=== PATIENT | male | born 1980 | race Two or more races ===

== ENCOUNTER → 2020-11-02 | Day surgery (SDC) | payer OTHER ==
[2020-10-31 10:15] VITALS: BMI 31.1
[~2020-11-02] MED LIST: ALBUTEROL NEB (CONC) 2.5 MG/0.5 ML INHALATION ONE; KETAMINE 10 MG/ML 20 ML VIAL ONE; LACTATED RINGERS 1,000 ML IV SCH; LIDOCAINE 1% INJ 10MG/ML (20 ML MDV) ONE; LIDOCAINE 2% (PF) 20 MG/ML 5 ML VIAL INHALATION ONE; LIDOCAINE 2% INJ 20 MG/ML INTRATRACH ONE; LIDOCAINE VISCOUS 2% 15 ML CUP MUCOUS MEM ONE; LIDOCAINE VISCOUS 300 MG/15 ML CUP MUCOUS MEM ONE; MIDAZOLAM 2 MG/2 ML VIAL ONE; PROPOFOL 10 MG/ML 20 ML VIAL IV ONE; fentaNYL (PF) 50 MCG/ML 2 ML AMP ONE
[2020-11-02 13:37] VITALS: TEMP 96.8
[2020-11-02 15:19] VITALS: RESP 17
--- NOTE | 2020-11-02 15:26 | P.PCN ---
Date of Procedure: 11/02/20 Preoperative Diagnosis: hemoptysis Postoperative Diagnosis: 1 Abnormal reina, irregular/inflammed/erythmatous with possible areas of calcification 2 Abnormal right main stem bronchus (medial wall) with irregular/inflammed/erythmatous with possible areas of calcification Procedure(s) Performed: Flexible bronchoscopy and airway inspection Endobronchial biopsies of main reina Bronchioloalveolar lavage of the superior segment of the lingula Transbronchial needle aspirate of subcarinal lymph node, station 7 Anesthesia: MAC Surgeon: Ange Hammonds Technology Advisor #1: Mely Rodriguez Estimated Blood Loss (ml): 10 Pathology: other Disposition: same day Operative Findings: This procedure was done in the endoscopy suite. This was done under conscious sedation. After achieving adequate sedation, the flexible bronchoscope was introduced through the right nostril was advanced with Doppler airway. Examination of the posterior oropharynx, larynx, epiglottis, vocal cords, arytenoids and all of the upper airway structures were within normal limits. A total of 2 mL of 1% lidocaine was applied to the vocal cords and following that the bronchoscope was advanced with Doppler trachea. The upper and the middle and distal trachea was within normal limits. There was no evidence of any bleeding or blood clots or any mucosal abnormalities involving the trachea. The reina was normal. The main reina was irregular, swollen, the mucosa was inflamed and there was some areas of superficial irregularity and possibly some areas of calcification as white spots were emerging within the inflamed area. Similarly, the medial wall of the right mainstem bronchus was involved with the same abnormalities. Airway inspection was completed. The visualized airways included bilateral mainstem bronchi, right upper lobe bronchus, bronchus intermedius, right middle lobe bronchus and right lower lobe bronchus along with this various 10 segments and examination of the left that included the left mainstem bronchus left upper lobe bronchus left lower lobe bronchus along with various 8 segments. No other abnormalities were identified. The bronchoscope was then was wedged into severe segment of the lingula and the bronchioloalveolar lavage was done. A total of 100 the fluid was infused and 30 mL was aspirated back. Bronchoscope was then brought up to the main trachea where under visualization, the bronchial biopsies of the mucosal abnormalities at the level of the primary reina was done. A total of 3 biopsies were obtained. This created some endobronchial bleeding at the level of the main reina and the mucosa was bleeding superficially. Amount of bleeding was minimal. Following that, utilizing a 21-gauge Mg needle, 2 passes of the subcarinal lymph node was attempted. This was difficult due to some blood the pop takes and visual guajardo. They obtain samples were sent for pathologic evaluation. At the completion of the procedure, therapeutic it was suctioning with him. Any residual bloody secretions were suctioned out. Bronchus was removed and the patient was transferred recovery in stable condition The patient will be discharged home. The samples will be sent for microbial cultures and analysis and pathologic evaluation. At the same time we'll obtain fungal serology and Ryan level and sedimentation rate. CAT scan of the chest was reviewed. Is a high suspicion that this may end up being a granulomatous lymph node which is possibly invading the main reina and the medial wall of the right mainstem bronchus. It final diagnoses to be established. The patient may benefit from argon plasma coagulation therapy to control the bleed at a later stage. This will be discussed with the patient. Finally condition will be done once results are not available.
[2020-11-02 15:47] VITALS: BP 116/54; PULSE 64
== END ==
LOC: ORWHC2ENDO 13:08
PROVIDERS: ATTEND Internal Medicine Critical Care Medicine
DX: B48.8 Other specified mycoses (principal); I10 Essential (primary) hypertension; R04.2 Hemoptysis; Z82.49 Family history of ischemic heart disease and other diseases of the circulatory system; Z87.891 Personal history of nicotine dependence
CPT/HCPCS: 87798 ×3; 87496; 87498; 87529; 88108; 88305; 88173; 85652; 82164; 88312; 87252; 87502; 87634; 87070; 87205; 87116; 87102; 87206; 31629; 31625; 31624; J2001 ×2; J2250; J3010; J2704; 86606; 86612; 86635; 86698; 87385

== ENCOUNTER → 2022-09-16 | Outpatient (CLI) | payer OTHER ==
--- NOTE | 2022-09-16 15:40 | CT ---
EXAMINATION TYPE: CT chest w con DATE OF EXAM: 09/16/2022 COMPARISON: 09/16/2022, CT scan 09/28/2020 HISTORY: previous abnormal exam. pt states hemoptysis CT DLP: 430.2 mGycm Automated exposure control for dose reduction was used. TECHNIQUE: CT scan of the chest is performed with IV Contrast, patient injected with 100ML mL of Isovue 300. TX P Images are created on CT scanner and reviewed. 3D reconstructed images are created on an [employer] workstation and reviewed. FINDINGS: LUNGS: There is a left upper lobe 1.4 cm nodule identified. There is no pleural effusion or pneumot horax seen. The tracheobronchial tree is patent. MEDIASTINUM: There is large soft tissue density in the middle mediastinum extending posteriorly with internal calcification measuring 3.2 cm. There is right hilar pathologic adenopathy measuring 1.7 cm. There is a nodule in the left upper lobe measuring 1.4 cm. OTHER: No additional significant abnormality is seen. IMPRESSION: 1. There is a 1.4 cm left upper lobe pulmonary nodule with the mediastinal and hilar lymphadenopathy. Recommend PET/CT scan. Differential diagnosis would include granulomatous disease, sarcoidosis, nicholas galdino lymphoma. Less common etiologies would be metastases.
== END | disposition home or self-care (01) ==
LOC: RADCTMAIN 14:44
PROVIDERS: ATTEND Internal Medicine
DX: R91.1 Solitary pulmonary nodule (principal); R59.0 Localized enlarged lymph nodes; R04.2 Hemoptysis
CPT/HCPCS: 71260; Q9967

== ENCOUNTER → 2022-09-16 | Outpatient (CLI) | payer OTHER ==
[2022-09-17 02:28] LABS: Basophils # (A) 0.06 X 10*3/uL (0.00-0.10); Basophils % (A) 0.8 %; Eosinophils # (A) 0.18 X 10*3/uL (0.04-0.35); Eosinophils % (A) 2.3 %; HCT 46.2 % (39.6-50.0); HGB 15.9 g/dL (13.0-17.0); Immature Grans, Automated 0.4 %; Lymphocytes # (A) 2.86 X 10*3/uL (0.90-5.00); Lymphocytes % (A) 36.4 %; MCH 30.3 pg (27.0-32.0); MCHC 34.4 g/dL (32.0-37.0); MCV 88.2 fL (80.0-97.0); Mean Platelet Volume 11.1 fL (9.5-12.2); Monocytes # (A) 0.59 X 10*3/uL (0.20-1.00); Monocytes % (A) 7.5 %; NRBC Per 100 WBC 0 /100 WBCS (0.0-0.0); Neutrophils # (A) 4.13 X 10*3/uL (1.80-7.70); Neutrophils % (A) 52.6 %; Platelet Count 283 X 10*3/uL (140-440); RBC 5.24 X 10*6/uL (4.40-5.60); RDW 12.6 % (11.5-14.5); WBC 7.85 X 10*3/uL (4.50-10.00)
[2022-09-17 02:33] LABS: ALT 47 U/L (10-49); AST 33 U/L (14-35); African American GFR (CKD) 126.4 (60.0-200.0); Albumin 4.3 g/dL (3.8-4.9); Albumin/Globulin Ratio 1.51 (1.60-3.17); Alkaline Phosphatase 89 U/L (41-126); BUN/Creat Ratio 17.31 Ratio (12.00-20.00); Blood Urea Nitrogen 14.7 mg/dL (9.0-27.0); C Reactive Protein <0.30 mg/dL (0.00-0.80); Calcium 9.6 mg/dL (8.7-10.3); Carbon Dioxide 25.1 mmol/L (20.0-27.5); Chloride 104 mmol/L (96-109); Globulin 2.8 g/dL (1.6-3.3); Glucose 85 mg/dL (70-110); Potassium 4.4 mmol/L (3.5-5.5); Sodium 139 mmol/L (135-145); Total Protein 7.1 g/dL (6.2-8.2)
[2022-09-17 05:45] LABS: Erythrocyte Sedimentation Rate 5 mm/Hr (0-15)
== END | disposition home or self-care (01) ==
LOC: LABWHC1 15:07
PROVIDERS: ATTEND Internal Medicine
DX: R04.2 Hemoptysis (principal); R91.1 Solitary pulmonary nodule
CPT/HCPCS: 36415; 80053; 82164; 85025; 85652; 86140; 86606; 86612; 86635; 86698; 87385

== ENCOUNTER 2022-10-01 11:31 | Day surgery (SDC) | payer OTHER ==
[~2022-10-01 11:31] MED LIST changes: -ALBUTEROL NEB (CONC) 2.5 MG/0.5 ML INHALATION ONE; -KETAMINE 10 MG/ML 20 ML VIAL ONE; +LIDOCAINE 1% (10MG/ML) FOR IV START INTRADERMA PRN; -LIDOCAINE 1% INJ 10MG/ML (20 ML MDV) ONE; -LIDOCAINE 2% (PF) 20 MG/ML 5 ML VIAL INHALATION ONE; +LIDOCAINE 2% GLYDO JELLY 11 ML APPL MUCOUS MEM ONE; -LIDOCAINE 2% INJ 20 MG/ML INTRATRACH ONE; -LIDOCAINE VISCOUS 2% 15 ML CUP MUCOUS MEM ONE; -LIDOCAINE VISCOUS 300 MG/15 ML CUP MUCOUS MEM ONE; -MIDAZOLAM 2 MG/2 ML VIAL ONE; -PROPOFOL 10 MG/ML 20 ML VIAL IV ONE; -fentaNYL (PF) 50 MCG/ML 2 ML AMP ONE
[2022-10-01] MEDS ORDERED: LACTATED RINGERS 1,000 ML IV ONE (12:24)
[2022-10-01] MEDS ORDERED: SUCCINYLCHOLINE CHLORIDE 200 MG/10 ML VIAL IV ONE (12:59)
[2022-10-01] MEDS ORDERED: MIDAZOLAM 2 MG/2 ML VIAL ONE (12:59)
[2022-10-01] MEDS ORDERED: PROPOFOL 10 MG/ML 20 ML VIAL IV ONE (12:59)
[2022-10-01] MEDS ORDERED: GLYCOPYRROLATE 0.2 MG/ML 2 ML VIAL ONE (12:59)
[2022-10-01] MEDS ORDERED: LIDOCAINE 2% INJ 20 MG/ML (2 ML VIAL) ONE (12:59)
[2022-10-01] MEDS ORDERED: ROCURONIUM 10 MG/ML (5 ML VIAL) IV ONE (12:59)
[2022-10-01] MEDS ORDERED: NEOSTIGMINE 1 MG/ML 10 ML VIAL ONE (12:59)
[2022-10-01] MEDS ORDERED: fentaNYL (PF) 50 MCG/ML 2 ML AMP ONE (12:59)
--- NOTE | 2022-10-01 13:12 | CT ---
EXAMINATION TYPE: CT Chest wo con Veran Protocol, CT chest wo con DATE OF EXAM: 10/01/2022 COMPARISON: Chest radiograph 09/17/2022, CT chest 09/16/2022. HISTORY: Bronchial navigation. Veran chest (accession [id number]), Pulmonary nodules/mass (accession [id number]) CT DLP: 722 (accession [id number]), 543.20 (accession [id number]) mGycm Automated exposure control for dose reduction was used. FINDINGS: LUNGS/ PLEURA: No pleural effusion, pneumothorax, focal consolidation. Stable 1.4 x 0.5 cm nodule wi thin the left upper lobe with 2 adjacent satellite nodules measuring up to 3 mm (series 6, image 34 a nd 33). Additional stable 7 mm nodule along the left major fissure favored to represent a intrafissur al lymph node (series 6, image 36). No new suspicious pulmonary nodules or masses within the lung. AIRWAY: Patent and unremarkable.. HEART: Size within normal limits. No pericardial effusion. MEDIASTINUM: Limited examination due to lack of intravenous contrast per stable enlarged 3.0 cm short axis subcarinal lymph node with central calcification. Additional left suprahilar enlarged 1.1 cm sh ort axis lymph node with central calcification redemonstrated. VASCULATURE: No aortic aneurysm. MUSCULOSKELETAL: No acute osseous abnormalities. No aggressive osseous lesion. SOFT TISSUES/LYMPH NODES: Unremarkable. LOWER NECK: No significant findings. UPPER ABDOMEN: No significant findings. IMPRESSION: REDEMONSTRATION OF A 1.4 SIMILAR LEFT UPPER LOBE PULMONARY NODULE WITH 2 ADJACENT SMALLER SATELLITE N ODULES. ADDITIONALLY THERE IS REDEMONSTRATION OF MEDIASTINAL AND LEFT HILAR LYMPHADENOPATHY WITH CENT RAL CALCIFICATION. ETIOLOGIES INCLUDE GRANULOMATOUS DISEASE, TREATED LYMPHOMA, SARCOIDOSIS, OR PRIMAR Y LUNG MALIGNANCY WITH METASTASIS.
[2022-10-01 14:24] VITALS: TEMP 97.5
--- NOTE | 2022-10-01 15:07 | XR ---
EXAMINATION TYPE: XR chest 1V portable DATE OF EXAM: 10/01/2022 3:01 PM COMPARISON: Chest radiographs from TECHNIQUE: XR chest 1V portable Portable AP radiograph of the chest. CLINICAL INDICATION:Male, 41 years old with history of bronchoscopy biopsies; FINDINGS: Lungs/Pleura: There is no evidence of pleural effusion, or pneumothorax. Patchy nodular densities wit hin the left midlung corresponding to biopsy pulmonary nodule today. Pulmonary vascularity: Unremarkable. Heart/mediastinum: Cardiomediastinal silhouette is unremarkable. Musculoskeletal: No acute osseous pathology. IMPRESSION: Patchy nodular densities within the left midlung corresponding to pulmonary nodule biopsy today with likely some surrounding trace hemorrhage. No pneumothorax.
[2022-10-01 15:44] VITALS: BP 104/69; PULSE 60; RESP 14
--- NOTE | 2022-10-01 21:46 | OP ---
OPERATIVE REPORT DATE OF SERVICE : PROCEDURES PERFORMED: Bronchoscopy, flexible airway inspection, endobronchial biopsies of main reina, bronchoalveolar lavage of the superior segment of the lingula, transbronchial needle aspiration of subcarinal nodes, station 7, washings of the main reina, and brushings of the main reina biopsy. PREOPERATIVE DIAGNOSES: Hemoptysis and history of old granulomatous disease, secondary to coccidioidomycosis and aspergillosis. POSTOPERATIVE DIAGNOSES: Hemoptysis and history of old granulomatous disease, secondary to coccidioidomycosis and aspergillosis; however, the patient was found to have abnormal reina with inflamed erythematous areas associated with calcification in the main reina area, especially the anterior portion and the wall of the right mainstem bronchus medially. Abnormal right mainstem bronchus, especially the medial wall, with irregular inflamed erythematous areas with areas of calcification. ANESTHESIA USED: General anesthetic. DESCRIPTION OF PROCEDURE: The patient was set up initially for navigational bronchoscopy and transbronchial needle aspiration of subcarinal nodes; however, the navigational bronchoscopy was not performed mostly because of equipment issues related to the senses. Hence, the patient underwent the bronchoscopy as noted above. The patient was brought into the bronchoscopy suite, he was placed in a supine position. Anesthesia performed general anesthesia and intubated the patient. The patient was closely monitored including continuous pulse oximetry monitoring, O2 saturation monitoring, blood pressure was intermittently monitored, and cardiac rhythm was continuously monitored. The bronchoscope was advanced through the adapter of the endotracheal tube, and as we reached the distal end of the trachea and the reina, you could see there was evidence of oozing of blood in the main reina area especially anteriorly and on the medial wall of the right mainstem bronchus. There was also evidence of calcification noted protruding from the mucosa of the reina. Examination of the right upper lobe, right middle lobe, right lower lobe was performed, left upper lobe, lingula, and left lower lobe. There was no evidence of any endobronchial tumors or hemoptysis. The main site of the hemoptysis was basically coming from the carinal area. We were initially scheduled or set up to have a navigational bronchoscopy and biopsy of the nodule in the superior segment of the lingula; however, because of equipment difficulties, this was not performed. The reina was identified, and multiple biopsies were done from the mucosal area of the reina and the areas of calcification. Then, after endobronchial biopsies, multiple transbronchial needle aspirations were done of station 7/subcarinal lymph nodes using a 19-gauge Mg needle. These were sent for different diagnostic studies. Then, washings of the lingula and lavage of the superior lingula was done. Washings of the reina were also performed, and brushing from the reina was also done. The procedure was well tolerated, and there was minimal blood loss less than 10 mL all in all. No evidence of complications. was updated on his condition. The patient will follow up with me in 1 week for followup on the pathology and cytology as well as cultures from these areas identified above. MMODL / IJN: [id number] /
== END 2022-10-01 15:55 | disposition home or self-care (01) ==
LOC: ORWHC2ENDO 11:31
PROVIDERS: ATTEND Internal Medicine
DX: J98.4 Other disorders of lung (principal); B38.9 Coccidioidomycosis, unspecified; B44.9 Aspergillosis, unspecified
CPT/HCPCS: 87798 ×3; 87496; 87498; 87529; 88104; 88305; 87252; 87502; 87634; 87070; 87205; 87116; 87102; 87206; 71045; 71250; 31629; 31623; 31624; 31627; J2250; J0330; J2710; J3010; J2704; J2001; 31625; 87305; 87449

== ENCOUNTER → 2023-06-29 | Outpatient (CLI) | payer OTHER ==
--- NOTE | 2023-06-29 19:32 | CT ---
EXAMINATION TYPE: CT chest w con DATE OF EXAM: 06/29/2023 COMPARISON: 09/16/2022 HISTORY: Hemoptysis CT DLP: 446.2 mGycm Automated exposure control for dose reduction was used. TECHNIQUE: CT scan of the chest is performed with IV Contrast, patient injected with 100 mL of Isovue 300. MIP Images are created on CT scanner and reviewed. 3D reconstructed images are created on an independent workstation and reviewed. FINDINGS: 1.4 cm left upper lobe pulmonary nodule with 2 smaller satellite nodules are again seen and are uncha nged. No new lung mass or nodule is seen. There is no airspace/consolidative density or abnormal interstitial density. There is no pleural effusion, pleural thickening or pneumothorax. The great vessels chest are normal. There is a 3 cm short axis subcarinal lymph node with central calcification unchanged compared to pre vious. The left hilar lymph adenopathy seen on the prior study has improved. 2 small subcentimeter le ft hilar lymph nodes are seen. There is a 2 cm right hilar lymph node which has increased in size in the interval. IMPRESSION: 1. No change in the left upper lobe pulmonary nodules as described above. 2. No change in the subcarinal lymph node with calcification. 3. Interval development of a 2 cm right hilar enlarged lymph node. 4. Improvement in the left hilar lymphadenopathy as described above.
== END | disposition home or self-care (01) ==
LOC: RADCTMAIN 18:14
PROVIDERS: ATTEND Internal Medicine
DX: A42.9 Actinomycosis, unspecified (principal); R91.8 Other nonspecific abnormal finding of lung field; R59.9 Enlarged lymph nodes, unspecified
CPT/HCPCS: 71260; Q9967